=== PATIENT | male | born 1955 | race Caucasian/White ===

== ENCOUNTER 2018-10-13 18:35 | Inpatient (IN) | payer MEDICARE, BC ==
[~2018-10-13] VITALS: Ht 182.9 cm; Wt 96.7 kg
[2018-10-13] MEDS ORDERED: MORPHINE SULFATE 4 MG/ML, 1ML IVPush PRN ×2 (19:00→20:30)
[2018-10-13] MEDS ORDERED: ONDANSETRON 2MG/ML, 2ML IVPush ONE (19:00)
--- NOTE | 2018-10-13 19:05 | NUR ---
bib remsa after a mechanical glf at home. pt c/o left hip/thigh pain. 100 mcg of fentanyl given by [employer] fire [employer]. pt in bed with clothes removed. pt states pain is a 2/10 when not moving but will jump to a 8/10 if leg is moved. pain is in the medial portion of the upper thigh but when the leg is moved the pain radiates down to the knee. no shortening noted but pts position of comfort is externally rotated and slightly adducted. last oral intake was lunch today at noon.
[2018-10-13 19:15] LABS: BASOPHILS # (AUTO) 0.03 x10^3/uL (0-0.1); BASOPHILS % (AUTO) 0 % (0-1); EOSINOPHILS # (AUTO) 0.12 x10^3/uL (0-0.4); EOSINOPHILS % (AUTO) 1 % (1-7); LYMPHOCYTES # (AUTO) 2.39 x10^3/uL (1-3.4); LYMPHOCYTES % (AUTO) 25 % (22-44); MD NO; MEAN CORPUSCULAR HEMOGLOBIN 31.3 pg (27.5-34.5); MEAN CORPUSCULAR VOLUME 94.6 fL (81-97); MEAN PLATELET VOLUME 8.8 fL (7.4-10.4); MONOCYTES # (AUTO) 0.49 x10^3/uL (0.2-0.8); MONOCYTES % (AUTO) 5 % (2-9); NEUTROPHILS # (AUTO) 6.66 x10^3/uL (1.8-6.8); NEUTROPHILS % (AUTO) 69 % (42-75); PLATELET COUNT 218 x10^3/uL (130-400); RED BLOOD COUNT 4.83 x10^6/uL (4.38-5.82); RED CELL DISTRIBUTION WIDTH 13.3 % (9.4-14.8)
[2018-10-13 19:23] LABS: ANION GAP 10 mmol/L (5-15); CALCIUM 9.1 mg/dL (8.5-10.1); CHLORIDE 109 mmol/L (98-107); CREATININE 1.24 mg/dL (0.7-1.3)
[2018-10-13] MEDS ORDERED: ONDANSETRON 2MG/ML, 2ML ONE (19:36)
[2018-10-13] MEDS ORDERED: MORPHINE SULFATE 4 MG/ML, 1ML ONE (19:36)
[2018-10-13] MEDS ORDERED: morphine SULFATE 10 MG/ML, 1ML IVPush PRN (20:30)
[2018-10-13] MEDS ORDERED: ONDANSETRON 2MG/ML, 2ML IVPush PRN (20:30)
[2018-10-13] MEDS ORDERED: ROSU5TAB PO (20:41)
[2018-10-13] MEDS ORDERED: METF500T17 PO (20:41)
[2018-10-13 23:04] VITALS: BP 153/87
[2018-10-14 00:45] VITALS: BP 104/61
[2018-10-14] MEDS: OXYcodone/APAP 5/325MG TABLET PO PRN ×2 (04:27→11:27)
[2018-10-14 05:41] LABS: BASOPHILS # (AUTO) 0.02 x10^3/uL (0-0.1); BASOPHILS % (AUTO) 0 % (0-1); EOSINOPHILS % (AUTO) 0 % (1-7); MD NO; NEUTROPHILS % (AUTO) 82 % (42-75)
[2018-10-14 05:47] LABS: LYMPHOCYTES # (AUTO) 1.18 x10^3/uL (1-3.4); LYMPHOCYTES % (AUTO) 12 % (22-44); MEAN CORPUSCULAR HEMOGLOBIN 30.4 pg (27.5-34.5); MEAN CORPUSCULAR HGB CONC 32.5 g/dL (33.2-36.2); MEAN CORPUSCULAR VOLUME 93.6 fL (81-97); MONOCYTES # (AUTO) 0.69 x10^3/uL (0.2-0.8); MONOCYTES % (AUTO) 7 % (2-9); NEUTROPHILS # (AUTO) 8.36 x10^3/uL (1.8-6.8); PLATELET COUNT 197 x10^3/uL (130-400); RED BLOOD COUNT 4.51 x10^6/uL (4.38-5.82); RED CELL DISTRIBUTION WIDTH 13.5 % (9.4-14.8)
[2018-10-14 05:49] LABS: INTERNATIONAL NORMALIZED RATIO 1.06 (0.93-1.1); PROTHROMBIN TIME 11.1 Seconds (9.6-11.5)
[2018-10-14 06:02] LABS: ANION GAP 8 mmol/L (5-15); CALCIUM 8.9 mg/dL (8.5-10.1); CHLORIDE 108 mmol/L (98-107); CREATININE 1.22 mg/dL (0.7-1.3)
[2018-10-14 06:20] LABS: HEMOGLOBIN A1C 6.2 % (4.2-6.3)
[2018-10-14 07:00] VITALS: BP 113/71
[2018-10-14 14:00] VITALS: BP 116/74
[2018-10-14] MEDS: D5%-0.45% NACL 1,000 ML IV SCH (15:46)
[2018-10-14] MEDS ORDERED: MIDAZOLAM 1 MG/ML, 2ML ONE (16:11)
[2018-10-14] MEDS ORDERED: FENTANYL PF 250 MCG/5ML ONE (16:11)
[2018-10-14] MEDS ORDERED: EPHEDRINE 50 MG/ML, 1ML ONE (16:36)
[2018-10-14] MEDS ORDERED: ESMOLOL 100 MG/10 ML ONE (16:36)
[2018-10-14] MEDS ORDERED: GLYCOPYRROLATE 0.2MG/1ML, 5ML ONE (16:36)
[2018-10-14] MEDS ORDERED: PHENYLEPHRINE 10 MG/ML ONE (16:36)
[2018-10-14] MEDS ORDERED: CEFAZOLIN 1,000 MG ONE (17:35)
[2018-10-14] MEDS ORDERED: ONDANSETRON 2MG/ML, 2ML ONE (17:35)
[2018-10-14] MEDS ORDERED: PROPOFOL 10 MG/ML, 20ML ONE (17:35)
[2018-10-14] MEDS ORDERED: DEXAMETHASONE 4 MG/ML, 1ML ONE (17:35)
[2018-10-14] MEDS ORDERED: ACETAMINOPHEN 325 MG TABLET PO PRN (18:00)
[2018-10-14] MEDS ORDERED: FENTANYL PF 100 MCG/2ML IV PRN (18:00)
[2018-10-14] MEDS ORDERED: ALBUTEROL/IPRATROPIUM 2.5MG/0.5MG, 3 ML NPPB PRN (18:00)
[2018-10-14] MEDS ORDERED: PROMETHAZINE 25 MG/ML, 1ML IV PRN (18:00)
[2018-10-14] MEDS ORDERED: METOPROLOL 1 MG/ML, 5ML IV PRN (18:00)
[2018-10-14] MEDS ORDERED: ONDANSETRON 2MG/ML, 2ML IV PRN ×2 (18:00→21:00)
[2018-10-14] MEDS ORDERED: MIDAZOLAM 1 MG/ML, 2ML IV PRN (18:00)
[2018-10-14] MEDS ORDERED: OXYcodone 5 MG/5 ML ORAL.SOL UDC PO PRN (18:00)
[2018-10-14] MEDS ORDERED: EPHEDRINE 50 MG/ML, 1ML IVPush PRN (18:00)
[2018-10-14] MEDS ORDERED: OXYcodone 5 MG/5 ML ORAL.SOL UDC ONE (18:03)
[2018-10-14] MEDS ORDERED: HYDROmorphone 2 MG/ML, 1ML ONE (18:34)
[2018-10-14] MEDS: HYDROmorphone 2 MG/ML, 1ML IVPush PRN ×2 (18:36→18:41)
[2018-10-14] MEDS ORDERED: KETOROLAC 30 MG/1 ML ONE (18:39)
[2018-10-14] MEDS ORDERED: KETOROLAC 30 MG/1 ML IVPush SCH (19:00)
[2018-10-14 19:17] VITALS: BP 122/67
[2018-10-14] MEDS ORDERED: HYDROmorphone 2 MG/ML, 1ML IVPush PRN (20:30)
[2018-10-14] MEDS ORDERED: OXYcodone/APAP 5/325MG TABLET PO PRN (21:00)
[2018-10-14] MEDS ORDERED: HYDROcodone/APAP 7.5-325MG/15ML UDC PO PRN (21:00)
[2018-10-14] MEDS ORDERED: SODIUM CHLORIDE FLUSH 10ML SYR IVF SCH (21:00)
[2018-10-14] MEDS ORDERED: CEFAZOLIN PMX 2GM/50ML 50 ML IVPB SCH (21:00)
[2018-10-14] MEDS: DOCUSATE 100 MG CAPSULE PO SCH (21:02)
[2018-10-14] MEDS: KETOROLAC 30 MG/1 ML IV SCH (21:02)
[2018-10-14] MEDS: ATORVASTATIN 20 MG TABLET PO SCH (21:19)
[2018-10-14 23:58] VITALS: BP 120/74
[2018-10-15] MEDS: CEFAZOLIN PMX 2GM/50ML 50 ML IVPB SCH ×2 (00:07→08:32)
[2018-10-15] MEDS: KETOROLAC 30 MG/1 ML IV SCH ×2 (03:40→12:55)
[2018-10-15] MEDS: D5%-0.45% NACL 1,000 ML IV SCH ×2 (03:41→12:55)
[2018-10-15 03:46] VITALS: BP 111/67
[2018-10-15] MEDS: ENOXAPARIN 40 MG/0.4 ML SQ SCH (05:33)
[2018-10-15 06:18] LABS: MEAN CORPUSCULAR HEMOGLOBIN 31.1 pg (27.5-34.5); MEAN CORPUSCULAR HGB CONC 32.7 g/dL (33.2-36.2); MEAN PLATELET VOLUME 9.2 fL (7.4-10.4); PLATELET COUNT 150 x10^3/uL (130-400); RED BLOOD COUNT 4.13 x10^6/uL (4.38-5.82); RED CELL DISTRIBUTION WIDTH 13.6 % (9.4-14.8)
[2018-10-15 06:29] LABS: ALBUMIN 3.5 g/dL (3.4-5.0); ANION GAP 8 mmol/L (5-15); CALCIUM 8.5 mg/dL (8.5-10.1); CHLORIDE 106 mmol/L (98-107)
[2018-10-15 06:33] LABS: ALANINE AMINOTRANSFERASE 26 U/L (12-78); ALKALINE PHOSPHATASE 41 U/L (45-117); BILIRUBIN,TOTAL 0.5 mg/dL (0.2-1.0); CREATININE 1.15 mg/dL (0.7-1.3); TOTAL PROTEIN 6.7 g/dL (6.4-8.2)
[2018-10-15 06:50] LABS: BASOPHILS # (AUTO) 0.02 x10^3/uL (0-0.1); BASOPHILS % (AUTO) 0 % (0-1); EOSINOPHILS % (AUTO) 0 % (1-7); LYMPHOCYTES # (AUTO) 0.82 x10^3/uL (1-3.4); LYMPHOCYTES % (AUTO) 9 % (22-44); MD SCAN; MONOCYTES # (AUTO) 0.68 x10^3/uL (0.2-0.8); MONOCYTES % (AUTO) 8 % (2-9); NEUTROPHILS # (AUTO) 7.26 x10^3/uL (1.8-6.8); NEUTROPHILS % (AUTO) 83 % (42-75)
[2018-10-15 06:59] VITALS: BP 101/60
[2018-10-15] MEDS: SODIUM CHLORIDE FLUSH 10ML SYR IVF SCH ×2 (08:33→20:45)
[2018-10-15] MEDS: DOCUSATE 100 MG CAPSULE PO SCH ×2 (08:33→20:45)
[2018-10-15] MEDS ORDERED: SODIUM CHLORIDE FLUSH 10ML SYR IVF SCH (09:00)
[2018-10-15 12:53] VITALS: BP 115/57
[2018-10-15 19:21] VITALS: BP 131/65
[2018-10-15] MEDS: ATORVASTATIN 20 MG TABLET PO SCH (20:46)
[2018-10-16 02:14] VITALS: BP 124/60
[2018-10-16 05:31] LABS: BASOPHILS # (AUTO) 0.04 x10^3/uL (0-0.1); BASOPHILS % (AUTO) 0 % (0-1); EOSINOPHILS # (AUTO) 0.05 x10^3/uL (0-0.4); EOSINOPHILS % (AUTO) 1 % (1-7); LYMPHOCYTES # (AUTO) 1.34 x10^3/uL (1-3.4); LYMPHOCYTES % (AUTO) 16 % (22-44); MD NO; MEAN CORPUSCULAR HEMOGLOBIN 31.2 pg (27.5-34.5); MEAN CORPUSCULAR HGB CONC 33.3 g/dL (33.2-36.2); MEAN CORPUSCULAR VOLUME 93.9 fL (81-97); MONOCYTES % (AUTO) 8 % (2-9); NEUTROPHILS # (AUTO) 6.47 x10^3/uL (1.8-6.8); NEUTROPHILS % (AUTO) 75 % (42-75); PLATELET COUNT 149 x10^3/uL (130-400); RED BLOOD COUNT 3.77 x10^6/uL (4.38-5.82); RED CELL DISTRIBUTION WIDTH 13.3 % (9.4-14.8)
[2018-10-16 05:41] LABS: ALBUMIN 3.5 g/dL (3.4-5.0); ANION GAP 4 mmol/L (5-15); CALCIUM 8.7 mg/dL (8.5-10.1); CHLORIDE 111 mmol/L (98-107); CREATININE 0.91 mg/dL (0.7-1.3)
[2018-10-16] MEDS: ENOXAPARIN 40 MG/0.4 ML SQ SCH (05:53)
[2018-10-16 07:51] VITALS: BP 133/81
[2018-10-16] MEDS: DOCUSATE 100 MG CAPSULE PO SCH ×2 (08:33→20:12)
[2018-10-16] MEDS: SODIUM CHLORIDE FLUSH 10ML SYR IVF SCH ×2 (08:33→20:13)
[2018-10-16] MEDS: METOPROLOL SUCCINATE 25 MG TAB.ER.24H PO SCH ×2 (10:24→13:24)
[2018-10-16] MEDS: FUROSEMIDE 20 MG/2 ML IV SCH ×2 (10:24→16:29)
[2018-10-16] MEDS ORDERED: FURO-93 PO (12:53)
[2018-10-16] MEDS ORDERED: ROSU5TAB PO (12:53)
[2018-10-16] MEDS ORDERED: METO25TA91 PO (12:53)
[2018-10-16] MEDS ORDERED: LISI5TAB7 PO (12:54)
[2018-10-16] MEDS ORDERED: ASPI-515 PO (12:54)
[2018-10-16] MEDS ORDERED: OXYC5TAB3 PO (12:55)
[2018-10-16 13:26] VITALS: BP 126/56
[2018-10-16] MEDS: LISINOPRIL 5 MG TABLET PO SCH (13:50)
[2018-10-16 19:05] VITALS: BP 99/54
[2018-10-16] MEDS: ATORVASTATIN 20 MG TABLET PO SCH (20:12)
[2018-10-17 02:52] VITALS: BP 106/65
[2018-10-17] MEDS: METOPROLOL SUCCINATE 25 MG TAB.ER.24H PO SCH ×2 (05:40)
[2018-10-17] MEDS: ENOXAPARIN 40 MG/0.4 ML SQ SCH (05:40)
[2018-10-17 06:02] LABS: BASOPHILS # (AUTO) 0.03 x10^3/uL (0-0.1); BASOPHILS % (AUTO) 0 % (0-1); EOSINOPHILS # (AUTO) 0.18 x10^3/uL (0-0.4); EOSINOPHILS % (AUTO) 2 % (1-7); LYMPHOCYTES # (AUTO) 1.39 x10^3/uL (1-3.4); LYMPHOCYTES % (AUTO) 17 % (22-44); MD NO; MEAN CORPUSCULAR HEMOGLOBIN 31.4 pg (27.5-34.5); MEAN CORPUSCULAR HGB CONC 33.4 g/dL (33.2-36.2); MEAN CORPUSCULAR VOLUME 94.1 fL (81-97); MONOCYTES # (AUTO) 0.73 x10^3/uL (0.2-0.8); MONOCYTES % (AUTO) 9 % (2-9); NEUTROPHILS % (AUTO) 72 % (42-75); PLATELET COUNT 163 x10^3/uL (130-400); RED BLOOD COUNT 3.83 x10^6/uL (4.38-5.82); RED CELL DISTRIBUTION WIDTH 13.4 % (9.4-14.8)
[2018-10-17 06:08] LABS: ALANINE AMINOTRANSFERASE 32 U/L (12-78); ALBUMIN 3.4 g/dL (3.4-5.0); ANION GAP 6 mmol/L (5-15); CALCIUM 8.6 mg/dL (8.5-10.1); CHLORIDE 107 mmol/L (98-107)
[2018-10-17 06:11] LABS: ALKALINE PHOSPHATASE 51 U/L (45-117); BILIRUBIN,TOTAL 0.7 mg/dL (0.2-1.0)
[2018-10-17] MEDS: FUROSEMIDE 20 MG/2 ML IV SCH (08:04)
[2018-10-17] MEDS: LISINOPRIL 5 MG TABLET PO SCH (08:05)
[2018-10-17] MEDS: DOCUSATE 100 MG CAPSULE PO SCH (08:05)
[2018-10-17] MEDS: SODIUM CHLORIDE FLUSH 10ML SYR IVF SCH (08:06)
[2018-10-17 08:30] VITALS: BP 131/85
[2018-10-17 13:35] VITALS: BP 108/66
== END 2018-10-17 15:15 | disposition home health service (06) | DRG 515 ==
LOC: ED 19:50 → EDIP 20:32 → 4WST 21:17 → DCLOUNGE 10-17 14:20
PROVIDERS: ADMIT Internal Medicine; ATTEND Internal Medicine
PROC: 0QS Lower Bones, Reposition (ICD-10-PCS; 2018-10-14)
PROC: 0QS Lower Bones, Reposition (ICD-10-PCS; principal; 2018-10-14 17:00)
DX: S32.432A Displaced fracture of anterior column [iliopubic] of left acetabulum, initial encounter for closed fracture (principal); I50.21 Acute systolic (congestive) heart failure; R71.0 Precipitous drop in hematocrit; S32.592A Other specified fracture of left pubis, initial encounter for closed fracture; S32.442A Displaced fracture of posterior column [ilioischial] of left acetabulum, initial encounter for closed fracture; E11.9 Type 2 diabetes mellitus without complications; E78.00 Pure hypercholesterolemia, unspecified; E78.5 Hyperlipidemia, unspecified; I48.91 Unspecified atrial fibrillation; D72.829 Elevated white blood cell count, unspecified; E83.39 Other disorders of phosphorus metabolism; I44.7 Left bundle-branch block, unspecified; W01.0XXA Fall on same level from slipping, tripping and stumbling without subsequent striking against object, initial encounter; Z83.3 Family history of diabetes mellitus; Y93.89 Activity, other specified; Y92.098 Other place in other non-institutional residence as the place of occurrence of the external cause; Y99.8 Other external cause status; Z79.84 Long term (current) use of oral hypoglycemic drugs
CPT/HCPCS: 36415; 71045; 72170; 72190; 72192; 76000; 80048; 80053; 82040; 83036; 83735; 84100; 85025; 85610; 93005; 96374; 96375; C1713; C8929; G0378; J0690; J1100; J1170; J1650; J1885; J2250; J2405; J2704; J3010; Q9957; J1940; J2270; J2370

== ENCOUNTER 2018-12-03 11:53 | Outpatient (CLI) | payer MEDICARE, BC ==
[~2018-12-03 11:53] MED LIST: ASPI-515 PO; FURO-93 PO; LISI5TAB7 PO; METF500T17 PO; METO25TA91 PO; OXYC5TAB3 PO; ROSU5TAB PO
[2018-12-03] MEDS ORDERED: REGADENOSON 0.4 MG/5 ML SYRINGE ONE (13:17)
== END 2018-12-03 23:59 | disposition home or self-care (01) ==
LOC: RAD 11:53
PROVIDERS: ATTEND Internal Medicine Cardiovascular Disease
DX: I44.7 Left bundle-branch block, unspecified (principal); I42.9 Cardiomyopathy, unspecified
CPT/HCPCS: 78452; 93017; A9502; J2785

== ENCOUNTER → 2019-07-07 | Outpatient (CLI) | payer MEDICARE, BC | END | disposition home or self-care (01) | LOC: CFH 15:42 | PROVIDERS: ATTEND Internal Medicine Cardiovascular Disease | DX: I08.8 Other rheumatic multiple valve diseases (principal); I10 Essential (primary) hypertension; I42.9 Cardiomyopathy, unspecified; E11.9 Type 2 diabetes mellitus without complications; E78.5 Hyperlipidemia, unspecified | CPT/HCPCS: 93306 ==

== ENCOUNTER → 2019-10-31 | Outpatient (CLI) | payer MEDICARE, BC | END | disposition home or self-care (01) | LOC: RAD 10:25 | PROVIDERS: ATTEND Internal Medicine Cardiovascular Disease | DX: I42.9 Cardiomyopathy, unspecified (principal) | CPT/HCPCS: 78472; A9560 ==

== ENCOUNTER → 2020-03-31 | Outpatient (CLI) | payer MEDICARE, BC | END | disposition home or self-care (01) | LOC: CFH 08:38 | PROVIDERS: ATTEND Internal Medicine Cardiovascular Disease | DX: I35.8 Other nonrheumatic aortic valve disorders (principal); I42.9 Cardiomyopathy, unspecified | CPT/HCPCS: 93306 ==

== ENCOUNTER → 2021-01-04 | Outpatient (CLI) | payer MEDICARE, BC ==
[~2021-01-04] MED LIST changes: -ASPI-515 PO; +ASPI-963 PO; -OXYC5TAB3 PO; +OXYC5TAB98 PO
[2021-01-04 08:04] LABS: BASOPHILS % (AUTO) 1 % (0-1); EOSINOPHILS % (AUTO) 7 % (1-7); LYMPHOCYTES % (AUTO) 33 % (22-44); MEAN CORPUSCULAR HEMOGLOBIN 30.4 pg (27.5-34.5); MEAN CORPUSCULAR HGB CONC 33.8 g/dL (33.2-36.2); MONOCYTES % (AUTO) 8 % (2-9); NEUTROPHILS % (AUTO) 52 % (42-75); PLATELET COUNT 214 x10^3/uL (130-400); RED BLOOD COUNT 4.73 x10^6/uL (4.38-5.82); RED CELL DISTRIBUTION WIDTH 13.1 % (9.4-14.8)
[2021-01-04 08:08] LABS: ALANINE AMINOTRANSFERASE 35 U/L (12-78); ALBUMIN 3.8 g/dL (3.4-5.0); ANION GAP 3 mmol/L (5-15); CALCIUM 8.8 mg/dL (8.5-10.1); CHLORIDE 107 mmol/L (98-107)
[2021-01-04 08:11] LABS: ALKALINE PHOSPHATASE 71 U/L (45-117); BILIRUBIN,TOTAL 0.4 mg/dL (0.2-1.0); CHOL/HDL RATIO 2.3; CHOLESTEROL, TOTAL 116 mg/dL (140-239); HDL CHOL % 43 % (26-37); HDL CHOLESTEROL (DIRECT) 50 mg/dL (40-60); LDL CHOLESTEROL,CALCULATED 55 mg/dL (54-169); LDL/HDL RATIO 1.1 (0.5-3.0); TOTAL PROTEIN 7.6 g/dL (6.4-8.2); TRIGLYCERIDES 56 mg/dL (50-200); VLDL CHOLESTEROL 11 mg/dL (0-25)
== END | disposition home or self-care (01) ==
LOC: LAB 07:41
PROVIDERS: ATTEND Nurse Practitioner Family
DX: E11.65 Type 2 diabetes mellitus with hyperglycemia (principal); I42.9 Cardiomyopathy, unspecified; I10 Essential (primary) hypertension; E78.5 Hyperlipidemia, unspecified
CPT/HCPCS: 36415; 80053; 80061; 83036; 85025